=== PATIENT | female | born 1955 | race Caucasian/White ===

== ENCOUNTER → 2016-07-25 | Outpatient (CLI) | payer OTHER ==
--- NOTE | 2016-07-25 10:59 | DIAGNOSTIC IMAGING REPORT ---
THYROID ULTRASOUND CLINICAL HISTORY: Thyroid nodule. COMPARISON STUDY: Thyroid ultrasound November 29, 2014. TECHNIQUE: Sonography of the thyroid gland was performed. FINDINGS: The right thyroid lobe measures 5.1 x 1.2 x 1.8 cm and the left lobe measures 4.7 x 1.5 x 1.1 cm. There are multiple tiny hypoechoic and cystic nodules within the thyroid gland. These are unchanged. Within the right isthmus junction, there is a 0.6 x 0.3 x 0.5 cm hypoechoic nodule which contains several calcifications. This is similar in size to exam of November 29, 2014. IMPRESSION: No change in the 6 mm hypoechoic right isthmus junction nodule since exam of November 29, 2014. The remainder of the tiny thyroid nodules are also unchanged since prior exam. Electronically signed by: Thee Brady M.D. 07/25/2016 10:58 AM Dictated Date/Time: 07/25/2016 10:52 AM
[2016-07-25 11:08] LABS: BASO % 0.6 %; BASO ABS # 0.05 K/uL (0-0.2); COMPLETE YES; HEMATOCRIT 39.7 % (37-47); LYMPH % 28.1 %; LYMPH ABS # 2.26 K/uL (1.2-3.4); MEAN CELL VOLUME 91.9 fL (80-100); MEAN CORPUSCULAR HEMOGLOBIN 31.7 pg (25-34); MEAN CORPUSCULAR HGB CONC 34.5 g/dl (32-36); MEAN PLATELET VOLUME 11.8 fL (7.4-10.4); MONO % 9.3 %; PLATELET COUNT 276 K/uL (130-400); RED BLOOD COUNT 4.32 M/uL (4.2-5.4); WHITE BLOOD COUNT 8.03 K/uL (4.8-10.8)
[2016-07-25 11:42] LABS: ALB/GLOB RATIO 1.3 (0.9-2); ALT/SGPT 16 U/L (12-78); AST/SGOT 16 U/L (15-37); BLOOD UREA NITROGEN 16 mg/dl (7-18); BUN/CREATININE RATIO 19.3 (10-20); CALCIUM 9.3 mg/dl (8.5-10.1); CARBON DIOXIDE 26 mmol/L (21-32); CHLORIDE 111 mmol/L (98-107); CHOLESTEROL 210 mg/dl (0-200); CREATININE 0.82 mg/dl (0.60-1.20); GLUCOSE 86 mg/dl (70-99); POTASSIUM 4.2 mmol/L (3.5-5.1); SODIUM 145 mmol/L (136-145); TRIGLYCERIDES 103 mg/dl (0-150); VERY LOW DENSITY LIPOPROT CALC 21 mg/dl
[2016-07-25 11:50] LABS: ALKALINE PHOSPHATASE 92 U/L (45-117); CHOLESTEROL/HDL RATIO 3.3; HDL CHOLESTEROL 64 mg/dl; LDL CHOLESTEROL CALCULATED 125 mg/dl; RHEUMATOID FACTOR 13.2 U/mL (0-15)
[2016-07-25 14:53] LABS: MANUAL MICROSCOPIC REQUIRED? NO; REVIEW REQ? NO; URINE APPEARANCE CLEAR (CLEAR); URINE BILIRUBIN NEG (NEG); URINE COLOR YELLOW; URINE NITRITE NEG (NEG); URINE SPECIFIC GRAVITY 1.016 (1.000-1.030); UROBILINOGEN NEG (NEG)
[2016-07-30 09:00] LABS: ANTI-SS-A <1.0 NEG AI (<1.0 NEG); ANTI-SS-B <1.0 NEG AI (<1.0 NEG)
[2016-07-30 13:19] LABS: ANA TITER > OR = 1:1280 TITER (<1:40)
== END | disposition home or self-care (01) ==
LOC: C.ULTR 09:41
PROVIDERS: ATTEND Internal Medicine
DX: E04.1 Nontoxic single thyroid nodule (principal); M35.1 Other overlap syndromes; E78.5 Hyperlipidemia, unspecified; E55.9 Vitamin D deficiency, unspecified; M35.00 Sjogren syndrome, unspecified; I73.00 Raynaud's syndrome without gangrene

== ENCOUNTER → 2017-01-16 | Outpatient (CLI) | payer OTHER ==
--- NOTE | 2017-01-17 13:58 | MAMMOGRAPHY REPORT ---
BILATERAL DIGITAL SCREENING MAMMOGRAM TOMOSYNTHESIS WITH CAD: 01/16/2017 CLINICAL HISTORY: Routine screening. Patient has no complaints. TECHNIQUE: Breast tomosynthesis in addition to standard 2D mammography was performed. Current study was also evaluated with a Computer Aided Detection (CAD) system. COMPARISON: Comparison is made to exams dated: 11/29/2014 mammogram - [facility], mammogram, 11/26/2011 mammogram, 11/14/2010 mammogram, 10/02/2007 mammogram, and 09/09/2006 [facility]og [facility]ee. BREAST COMPOSITION: The tissue of both breasts is heterogeneously dense, which may obscure small mas ses. FINDINGS: No suspicious masses, calcifications, or areas of architectural distortion are noted in ei ther breast. There has been no significant interval change compared to prior exams. Bilateral benign -appearing calcifications are not significantly changed. There is stable architecture distortion in the left 12:00 breast, which was previously marked with a linear scar marker and is felt to represent post surgical changes. IMPRESSION: ACR BI-RADS CATEGORY 2: BENIGN There is no mammographic evidence of malignancy. A 1 year screening mammogram is recommended. The pa tient will receive written notification of the results. Approximately 10% of breast cancers are not detected with mammography. A negative mammographic report should not delay biopsy if a clinically suggestive mass is present. Harmony Graham M.D. ah/:01/16/2017 15:31:19 Senior Biostatistician: Tianna DUONG)(Any), [facility] letter sent: Normal 1/2 BI-RADS Code: ACR BI-RADS Category 2: Benign
== END | disposition home or self-care (01) ==
LOC: C.MAMM 14:50
PROVIDERS: ATTEND Obstetrics & Gynecology
DX: Z12.31 Encounter for screening mammogram for malignant neoplasm of breast (principal)

== ENCOUNTER → 2017-02-27 | Outpatient (CLI) | payer OTHER ==
--- NOTE | 2017-02-27 15:58 | MAMMOGRAPHY REPORT ---
ULTRASOUND OF BOTH BREASTS: 02/27/2017 CLINICAL HISTORY: Screening breast ultrasound for dense breasts. The patient reports a history of a prior benign left breast excisional biopsy. She also reports that her doctor felt a possible lump in the left upper outer breast, the patient could not pinpoint the exact location. The patient cannot feel any lumps herself. COMPARISON: Comparison is made to exams dated: 01/16/2017 mammogram, 11/29/2014 mammogram - [facility], 12/30/2012 mammogram, 11/26/2011 mammogram, 11/14/2010 mammogram, and 10/02/2007 mammo gram. TECHNIQUE: Real-time ultrasound of both breasts was performed. FINDINGS: Real-time, high-resolution ultrasound was performed of both breasts including all 4 quadra nts and subareolar regions. The background parenchymal echotexture is heterogeneous bilaterally, whi ch reduces the sensitivity of the exam. There are post surgical changes in the left 12:00 breast at the site of a prior benign excisional biopsy. There are no suspicious masses or other suspicious son ographic abnormalities in either breast. IMPRESSION: ACR BI-RADS CATEGORY 2: BENIGN There is no sonographic evidence of malignancy in either breast. No suspicious sonographic abnormali ty in the left upper outer quadrant at the site of a possible lump felt by the patient's physician; n ote that the patient could not pinpoint the exact location of the lump. Return to annual mammogram sc reening schedule is recommended, due January 2018. Also recommend clinical follow-up for the possible left breast lump; any decision to biopsy should be based on clinical grounds. The patient was verbally notified of the results. Harmony Graham M.D. /:02/27/2017 14:11:25 Beam Dyer Recessed Vat: Harmony Graham MD, [facility] letter sent: Normal 1/2 BI-RADS Code: ACR BI-RADS Category 2: Benign
== END | disposition home or self-care (01) ==
LOC: C.MAMM 13:31
PROVIDERS: ATTEND Obstetrics & Gynecology
DX: Z12.31 Encounter for screening mammogram for malignant neoplasm of breast (principal)

== ENCOUNTER → 2018-01-14 | Outpatient (CLI) | payer OTHER ==
[2018-01-14 10:12] LABS: BASO % 0.5 %; BASO ABS # 0.04 K/uL (0-0.2); EOS % 5.5 %; EOS ABS # 0.46 K/uL (0-0.5); HEMATOCRIT 42.5 % (37-47); LYMPH ABS # 2.33 K/uL (1.2-3.4); MEAN CELL VOLUME 94.2 fL (80-100); MEAN CORPUSCULAR HGB CONC 32.9 g/dl (32-36); MEAN PLATELET VOLUME 11.9 fL (7.4-10.4); MONO % 9.3 %; MONO ABS # 0.77 K/uL (0.11-0.59); NEUT % 56.7 %; NEUT ABS # 4.71 K/uL (1.4-6.5); PLATELET COUNT 276 K/uL (130-400); RED CELL DISTRIBUTION WIDTH CV 13.8 % (11.5-14.5); RED CELL DISTRIBUTION WIDTH SD 47.3 fL (36.4-46.3); WHITE BLOOD COUNT 8.31 K/uL (4.8-10.8)
--- NOTE | 2018-01-14 10:39 | DIAGNOSTIC IMAGING REPORT ---
THYROID ULTRASOUND CLINICAL HISTORY: Thyroid nodule. COMPARISON STUDY: Thyroid ultrasound July 25, 2016. TECHNIQUE: Sonography of the thyroid gland was performed. FINDINGS: The right thyroid lobe measures 5.5 x 1.6 x 1.2 cm and the left lobe measures 5.6 x 1.4 x 1.7 cm. Multiple subcentimeter thyroid nodules are unchanged since previous exams, including a 0.5 x 0.5 x 0.3 cm right isthmus junction hypoechoic nodule which contains several calcifications. There is associated shadowing. IMPRESSION: No change in the 5 mm hypoechoic right isthmus junction nodule since exam of November 29, 2014. Remainder of subcentimeter thyroid nodules also unchanged since initial exam. Electronically signed by: Thee Brady M.D. 01/14/2018 10:38 AM Dictated Date/Time: 01/14/2018 10:34 AM
[2018-01-14 10:49] LABS: ALBUMIN 3.8 gm/dl (3.4-5.0); ALKALINE PHOSPHATASE 93 U/L (45-117); ALT/SGPT 18 U/L (12-78); AST/SGOT 18 U/L (15-37); BLOOD UREA NITROGEN 15 mg/dl (7-18); CALCIUM 8.7 mg/dl (8.5-10.1); CARBON DIOXIDE 28 mmol/L (21-32); CHOLESTEROL 208 mg/dl (0-200); CREATININE 0.89 mg/dl (0.60-1.20); GLUCOSE 91 mg/dl (70-99); LDL CHOLESTEROL CALCULATED 124 mg/dl; POTASSIUM 4.5 mmol/L (3.5-5.1); SODIUM 140 mmol/L (136-145); TOTAL PROTEIN 7.1 gm/dl (6.4-8.2)
--- NOTE | 2018-01-14 11:10 | DIAGNOSTIC IMAGING REPORT ---
ABDOMEN COMPLETE (US) CLINICAL HISTORY: 62 years-old Female presenting with ABD PAIN. TECHNIQUE: Real-time grayscale and limited color Doppler ultrasound imaging of the abdomen was performed. COMPARISON: None. FINDINGS: Pancreas: Visualized portions of the pancreatic head and body normal. Liver: Normal echogenicity and echotexture. No sonographic evidence of hepatic mass. Main portal vein patent with normal directional flow. Biliary: No intrahepatic biliary ductal dilatation. Common bile duct measures up to 6 mm in diameter. Gallbladder: No evidence of gallstones, gallbladder wall thickening, gallbladder distention, or pericholecystic fluid or inflammatory change. Spleen: Normal in echogenicity and size, measuring 8.8 cm in length. Kidneys: Normal in size and echogenicity. Right kidney measures 10.0 cm, and left kidney measures 9.5 cm. No hydronephrosis. Vasculature: Visualized portions of the IVC and abdominal aorta normal. Ascites: None. IMPRESSION: No sonographic evidence of acute intra-abdominal pathology. No cholelithiasis or biliary ductal dilatation. Electronically signed by: Fredis De Anda M.D. 01/14/2018 11:08 AM Dictated Date/Time: 01/14/2018 11:06 AM
[2018-01-15 15:33] LABS: ANA SCREEN TC 249X POSITIVE (NEGATIVE); ANTI-SS-A <1.0 NEG AI (<1.0 NEG); ANTI-SS-B <1.0 NEG AI (<1.0 NEG)
== END | disposition home or self-care (01) ==
LOC: C.ULTR 09:31
PROVIDERS: ATTEND Internal Medicine
DX: R10.11 Right upper quadrant pain (principal); E04.2 Nontoxic multinodular goiter